=== PATIENT | male | born 1990 | race Native Hawaiian/Other Pacific Islander ===

== ENCOUNTER 2017-08-30 16:57 | Emergency (ER) | payer OTHER ==
[~2017-08-30] VITALS: Ht 160 cm; Wt 73.6 kg
[2017-08-30] MEDS ORDERED: METOCLOPRAMIDE 10 MG TAB PO ONE (17:30)
[2017-08-30 17:56] LABS: MEAN CORPUSCULAR HEMOGLOBIN 31.9 pg (27.0-33.0); MEAN CORPUSCULAR HGB CONC 35.9 g/dl (32.0-36.5); MEAN CORPUSCULAR VOLUME 88.9 fl (80.0-96.0); RED CELL DISTRIBUTION WIDTH 12.1 % (11.5-14.5); WHITE BLOOD COUNT 9.3 10^3/uL (4.0-10.0)
[2017-08-30 18:20] LABS: METHADONE URINE NEGATIVE (NEGATIVE)
[2017-08-30 18:29] LABS: ALBUMIN 3.9 GM/DL (3.2-5.2); ALKALINE PHOSPHATASE 90 U/L (45-117); ALT/SGPT 39 U/L (12-78); ANION GAP 8 MEQ/L (8-16); AST/SGOT 19 U/L (15-37); BILIRUBIN,DIRECT 0.1 MG/DL (0.0-0.2); BILIRUBIN,TOTAL 0.6 MG/DL (0.2-1.0); BLOOD UREA NITROGEN 12 MG/DL (7-18); CALCIUM LEVEL 8.6 MG/DL (8.5-10.1); CARBON DIOXIDE LEVEL 24 MEQ/L (21-32); CHLORIDE LEVEL 109 MEQ/L (98-107); CREATININE FOR GFR 1.18 MG/DL (0.70-1.30); GLOMERULAR FILTRATION RATE > 60.0 (>60); GLUCOSE, FASTING 103 MG/DL (70-105); POTASSIUM SERUM 3.8 MEQ/L (3.5-5.1); SODIUM LEVEL 141 MEQ/L (136-145); TOTAL PROTEIN 6.9 GM/DL (6.4-8.2)
[2017-08-30] MEDS ORDERED: REGL10TA6 PO (21:10)
[2017-08-30 21:15] VITALS: BP 138/79
== END 2017-08-30 21:16 | disposition home or self-care (01) ==
LOC: M ED 16:57
DX: F41.1 Generalized anxiety disorder (principal); F41.0 Panic disorder [episodic paroxysmal anxiety]; Z87.820 Personal history of traumatic brain injury
CPT/HCPCS: 80048; 80076; 80307; 84443; 85027; 99284; G0480

== ENCOUNTER 2017-12-31 14:47 | Inpatient (IN) | payer OTHER ==
[2017-12-31 15:43] LABS: HEMOGLOBIN 16.5 g/dl (14.0-18.0); MEAN CORPUSCULAR HEMOGLOBIN 31.3 pg (27.0-33.0); MEAN CORPUSCULAR HGB CONC 35.1 g/dl (32.0-36.5); MEAN CORPUSCULAR VOLUME 89.2 fl (80.0-96.0); PLATELET COUNT, AUTOMATED 256 10^3/uL (150-450); RED BLOOD COUNT 5.27 10^6/uL (4.30-6.10); WHITE BLOOD COUNT 8.4 10^3/uL (4.0-10.0)
[2017-12-31 16:05] LABS: AMPHETAMINES LEVEL URINE NEGATIVE (NEGATIVE); BARBITURATES URINE NEGATIVE (NEGATIVE); BENZODIAZEPINES URINE NEGATIVE (NEGATIVE); CANNABINOIDS URINE NEGATIVE (NEGATIVE); COCAINE METABOLITE URINE NEGATIVE (NEGATIVE); METHADONE URINE NEGATIVE (NEGATIVE); OPIATES URINE NEGATIVE (NEGATIVE); PHENCYCLIDINE URINE NEGATIVE (NEGATIVE)
[2017-12-31 16:12] LABS: ALBUMIN 4.4 GM/DL (3.2-5.2); ALBUMIN/GLOBULIN RATIO 1.33 (1.00-1.93); ALKALINE PHOSPHATASE 106 U/L (45-117); ALT/SGPT 24 U/L (12-78); ANION GAP 9 MEQ/L (8-16); AST/SGOT 16 U/L (7-37); BILIRUBIN,DIRECT 0.1 MG/DL (0.0-0.2); BILIRUBIN,TOTAL 0.7 MG/DL (0.2-1.0); BLOOD UREA NITROGEN 15 MG/DL (7-18); CALCIUM LEVEL 8.7 MG/DL (8.5-10.1); CARBON DIOXIDE LEVEL 27 MEQ/L (21-32); CHLORIDE LEVEL 104 MEQ/L (98-107); CREATININE FOR GFR 1.06 MG/DL (0.70-1.30); ETHYL ALCOHOL (ETHANOL) < 0.003 % (0.000-0.010); GLOMERULAR FILTRATION RATE > 60.0 (>60); GLUCOSE, FASTING 93 MG/DL (70-100); POTASSIUM SERUM 3.7 MEQ/L (3.5-5.1); SALICYLATE LEVEL < 1.7 MG/DL (5.0-30.0); SODIUM LEVEL 140 MEQ/L (136-145); TOTAL PROTEIN 7.7 GM/DL (6.4-8.2)
[2017-12-31 16:13] LABS: ACETAMINOPHEN LEVEL < 2.0 UG/ML (10.0-30.0)
[2017-12-31] MEDS ORDERED: MAALOX 30 ML SUSP *UDC PO (17:45)
[2018-01-01] MEDS ORDERED: hydrOXYzine 10 MG TAB PO (14:15)
[2018-01-01] MEDS: QUEtiapine FUMARATE 25 MG TAB PO (20:14)
[2018-01-01] MEDS: PARoxetine 10MG TABLET PO (20:15)
[2018-01-02] MEDS: ACETAMINOPHEN TAB 650MG DOSE (2X325MG) PO (04:16)
[2018-01-02] MEDS: QUEtiapine FUMARATE 25 MG TAB PO (21:14)
[2018-01-02] MEDS: traZODone 50 MG TAB PO (21:14)
[2018-01-02] MEDS: PARoxetine 10MG TABLET PO (21:14)
[2018-01-03] MEDS: PARoxetine 10MG TABLET PO (21:31)
[2018-01-03] MEDS: QUEtiapine FUMARATE 25 MG TAB PO (21:31)
[2018-01-03] MEDS: ACETAMINOPHEN TAB 650MG DOSE (2X325MG) PO (21:32)
[2018-01-03] MEDS: MOM 30ML SUSPENSION UDC PO (22:43)
[2018-01-04] MEDS: QUEtiapine FUMARATE 25 MG TAB PO (22:12)
[2018-01-04] MEDS: PARoxetine 10MG TABLET PO (22:12)
[2018-01-05] MEDS: PARoxetine 10MG TABLET PO (21:20)
[2018-01-05] MEDS: QUEtiapine FUMARATE 25 MG TAB PO (21:20)
[2018-01-06] MEDS: QUEtiapine FUMARATE 25 MG TAB PO (21:25)
[2018-01-06] MEDS: PARoxetine 10MG TABLET PO (21:25)
[2018-01-07] MEDS: QUEtiapine FUMARATE 25 MG TAB PO (21:34)
[2018-01-07] MEDS: PARoxetine 10MG TABLET PO (21:34)
== END 2018-01-08 13:44 | disposition home or self-care (01) | DRG 885 ==
LOC: M PSY 01-04 16:24 → M ED 14:47 → M ED INP 17:35 → M PSY 20:15
DX: F39 Unspecified mood [affective] disorder (principal); R45.851 Suicidal ideations; F31.9 Bipolar disorder, unspecified; F43.10 Post-traumatic stress disorder, unspecified; F60.89 Other specific personality disorders; Z79.899 Other long term (current) drug therapy

== ENCOUNTER 2018-01-15 18:02 | Emergency (ER) | payer OTHER | END 2018-01-15 21:25 | disposition home or self-care (01) | LOC: M ED 18:02 | DX: F43.20 Adjustment disorder, unspecified (principal); F33.9 Major depressive disorder, recurrent, unspecified | CPT/HCPCS: 99284 ==